=== PATIENT | female | born 1950 | race Caucasian/White ===

== ENCOUNTER → 2017-01-05 | Outpatient (CLI) | payer BC ==
[~2017-01-05] MED LIST: AMLO2.5T PO; ASPI-482 PO; ATOR10TA PO; ESCI5TAB24 PO; IOHEXOL 240 MG/ML 50ML VIAL. PO ONE; IOHEXOL 300 MG/ML 100ML VIAL. IV ONE; LEVO25TA4 PO
--- NOTE | 2017-01-05 11:25 | KCIC ---
PROCEDURE CT abdomen and pelvis with contrast dated 01/05/2017. HISTORY Acute epigastric pain. Recent history of gastric surgery. TECHNIQUE Contiguous axial imaging of the abdomen and pelvis performed after the administration of 100 cc Omnipaque 300. Oral contrast was also administered.Exposure: One or more of the following individualized dose reduction techniques were utilized for this exam: 1. Automated exposure control. 2. Adjustment of the mA and/or kV according to patient size. 3. Use of iterative reconstruction technique. COMPARISON None. FINDINGS Limited images of lung bases are clear. Heart size within normal limits. No pleural or pericardial effusion. Well-defined low density lesion medial segment left lobe liver measures 1.2 centimeters in size Hounsfield value of 16. There is also a vague low density focus within the right lobe liver on image 27 that measures about 4 millimeters in size, too small to accurately characterize. Biliary tree normal in caliber. Gallbladder unremarkable. Spleen, pancreas, adrenal glands and kidneys are unremarkable. No hydronephrosis. Partially opacified GI tract normal in caliber and contour. No focal bowel wall thickening. No inflammatory stranding in the mesenteric. The appendix is normal in caliber. No ascites or lymphadenopathy. Images of pelvis show nondistended urinary bladder. There is an exophytic calcified fibroid extending from the posterior uterine body. Adnexa unremarkable. No free fluid or lymphadenopathy. Bone windows show no acute findings. Mild multilevel spondylosis. IMPRESSION - No acute abnormality of abdomen or pelvis. - Fibroid uterus. - Indeterminate low density lesions of the liver, probably benign. Follow up imaging in 6 months to 1 year to ensure stability. Electronically signed by: Garrett Whitfield (January 05, 2017 11:24:13)
== END | disposition home or self-care (01) ==
LOC: KCIC CT 09:36
PROVIDERS: ATTEND Nurse Practitioner Family
DX: D25.9 Leiomyoma of uterus, unspecified (principal)
CPT/HCPCS: 74177; Q9966; Q9967